=== PATIENT | female | born 1985 | race Caucasian/White ===

== ENCOUNTER 2023-01-06 05:09 | Inpatient (IN) | payer BC, SELFPAY ==
[2023-01-06] VITALS (36 sets, daily range): BP systolic 98–131; BP diastolic 60–81; PULSE 62–98; RESP 16–20; TEMP 36.4–36.9; O2SAT 97–98; BMI 39.4
[2023-01-06 06:22] LABS: Hemoglobin* 11.5 gm/dL (12.0-16.0)
[2023-01-06] MEDS: LACTATED RINGERS 1000 ML 1,000 ML 125 ML IV ×2 (06:31→11:53)
[2023-01-06 06:54] LABS: Hematocrit 33.1 % (33.0-51.0); Hemoglobin* 11.5 gm/dL (12.0-16.0); Mean Corpuscular HGB Conc 35 gm/dL (32-36); Mean Corpuscular Hemoglobin 32 pg (26-34); Mean Corpuscular Volume 92 fL (80-100); Platelet Count* 210 K/uL (140-440); Red Blood Count 3.61 m/uL (4.00-5.20); White Blood Count* 10.54 K/uL (4.50-11.00)
[2023-01-06 06:55] LABS: Basophils Percent Auto 0.4 % (0.0-3.0); Eosinophils Percent Auto 1.6 % (0.0-7.0); Lymphocytes Percent Auto 24.4 % (20-44); Monocytes Percent Auto 7.6 % (0.0-11.0); RDW Coefficient of Variation % 12.9 % (11.5-15.5); Slide Review Reflex No
--- NOTE | 2023-01-06 07:30 | W.PM.LDBA ---
Subjective History of Present Illness Time Seen by Provider: 07:30 Date Seen: 01/06/23 Narrative: Patient is being admitted to Labor and Delivery for scheduled repeat delivery and bilateral salpingectomy. She is a 37 year old at 36w5d gestation. Her full history and physical was dictated by Dr. Winters on 12/27. Please see this for details. She received BMZx2 on 01/01 and 01/02. Dr. Winters was present during our discussion this AM but I reviewed again the indication for her delivery. She saw me for a TOLAC vs CD consult on 12/20 and I had concerns about active segment involvement with her last due to the difficult delivery she described and that hysterotomy was closed in 3 layers (closure for active segment). I reviewed her case with all of my partners as we would have to agree unanimously to offer her a trial of labor after delivery are not given that anyone of us can be licensed vocational nurse when she comes into labor. All of my partners had the same concerns and we did not feel comfortable offering her TOLAC at our institution. Dr. Winters and I did offer her a consult at a tertiary care center if she felt strongly about TOLAC. She declined a second opinion as she did not feel comfortable with the risks of TOLAC anymore, knowing that the case was reviewed with multiple providers. Additionally, she and her spouse were wanting permanent sterilization after this delivery. Originally, the plan was for her to get a vasectomy if she delivered vaginally but now it makes the most sense to proceed with CD and bilateral salpingectomy for her. We had signed federal sterilization consent at our last visit. Active movement. Denies LOF, vaginal bleeding or abnormal vaginal discharge. Minimal contractions. OB - Problem Based A/P Additional Plan (1) Unwanted fertility: Status: Acute (2) Previous delivery affecting : Status: Acute Plan CS Consent The patient was consented for section and blood. She understands that the three main categories of risk include bleeding, infection, and damage to surrounding structures. Regarding infection, she understands that we will be delivering appropriate antibiotics, however that the risk of infection following section still is approximately 5%. She understands that though the risk is very low that there is always a risk of damage to the bladder, uterus, ovaries, fallopian tubes, bowels, ureters, or even the fetus. She understands that most injuries can be addressed at the time of surgery, however, such an injury may require additional surgeries to fix. Lastly, she understands that a section carries a risk of bleeding, and that while this bleeding can be addressed with multiple medical and surgical modalities, that there is the possibility of needing a blood transfusion. She reports she would accept a blood transfusion understanding the risks of a 1/200,000 risk of Hepatitis and 1/2,000,000 risk of HIV as well as the risk of having an allergic reaction to the blood products. She further understands that this reaction is typically mild, however can be severe including respiratory distress and necessitating ICU-level care. Lastly, she understands that a section does increase risks for future pregnancies and deliveries including, but not limited to, the risk of uterine rupture or placenta accreta. We discussed risk/benefit/alternative of permanent sterilization. We discussed that there should be clear understanding this is permanent and irreversible. The mechanism of action is to prevent conception by blocking transport of sperm from the lower genital tract to an ovulated oocytes. My preferred method of sterilization is salpingectomy. Salpingectomy is the removal of bilateral fallopian tubes. There is potential opportunity to decrease the risk of ovarian cancer in patients who already are undergoing pelvic surgery for benign indications. It can decrease the risk of future ovarian cancer by as much as 40-60%. I informed patient that most women who choose sterilization do not regret their decision. CREST study report that 5 year risk of regret is about 7%. Cumulative risk of regret w/in 14 years of procedure is 20% for patient <30 y/o and 6% >30 years of age. Hgb/plt: 11.5/210 O+, negative antibody screen Delivery/Labor/Induction Plan Plan: Section OB Exam Physical Exam Vital signs: Temp Pulse Resp BP Pulse Ox 98.4 F 83 16 131/72 98 01/06/23 05:35 01/06/23 05:33 01/06/23 05:35 01/06/23 05:33 01/06/23 05:38 Narrative: Physical exam: General: No acute distress Psych: Alert and oriented x3, full affect HEENT: Normocephalic, atraumatic Lungs: Unlabored breathing Abdomen: Gravid. Soft, no rebound or guarding Neuro: No focal deficit. Mentating appropriately Pelvic exam: Deferred
[2023-01-06] MEDS: CEFAZOLIN 2 GM INJ IVP (07:40)
[2023-01-06] MEDS: LACTATED RINGERS 1000 ML 1,000 ML 100 ML IV (07:45)
[2023-01-06] MEDS: CEFAZOLIN 1 GM inj IVP (07:45)
--- NOTE | 2023-01-06 08:40 | W.ANESCHARGE ---
Anesthesia Charges Start Date/Time Anesthesia Start Date: 01/06/23 Anesthesia Start Time: 07:24 Stop Date/Time Anesthesia Stop Date: 01/06/23 Anesthesia Stop Time: 09:16
[2023-01-06] MEDS: KETOROLAC 30 MG/ML inj IVP ×3 (08:42→21:22)
--- NOTE | 2023-01-06 09:16 | W.ANESCHARGE ---
Anesthesia Charges Start Date/Time Anesthesia Start Date: 01/06/23 Anesthesia Start Time: 07:24 Stop Date/Time Anesthesia Stop Date: 01/06/23 Anesthesia Stop Time: 09:16
--- NOTE | 2023-01-06 09:16 | W.PM.NB ---
Nerve Block Nerve Block Time Seen by Provider: 09:10 Date Seen: 01/06/23 Type of block requested by surgeon for post-operative analgesia: TAP Side: bilateral Time out performed: Yes Verification of patient name: Yes Verification of date of : Yes Site marking: site marked Name of person performing procedure: Andrea Assistants, if any: Sabine Continuous monitoring Was continuous monitoring of O2 sat, B/P, publication distributor, recorded every 15 minutes?: Yes Procedure Checklist: sterile prep, needles and gloves Ultrasound guided. Images saved: Yes Medications given in 5ml increments after negative aspiration: Marcaine %: 0.25 mL: 30 Needle gauge: 20 and Exparel mL: 10 Patient tolerated procedure well: Yes Additional comments: Needle noted adjacent to nerve Block Charges Block Charge (with Pro Fee): TAP Bilateral Use of Ultrasound Machine for Block: Yes- US Guidance/pain block
--- NOTE | 2023-01-06 09:35 | P.OBPRC_ITS ---
Procedure Time Seen by Provider: 07:00 Date of procedure: 01/06/23 Will [facility] bill your pro fee for this procedure?: Yes Procedure Description: DELIVERY BY SECTION Date of Service: 01/06/2023 Delivery time: 08 Summary: Admitted for scheduled repeat delivery weeks at 36w5d (s/p BMZ benefit), Pfannenstiel, repeat lower uterine transverse section, bilateral salpingectomy, Closed with suture, QBL 843 cc, No complications Findings: Dense and extensive adhesion of rectus fascia to rectus muscle, omentum to anterior rectus sheath and bilateral rectus muscles. Filmy adhesion of the bladder at previous hysterotomy scar. Enlarged uterus with some posterior fibroids, normal bilateral ovaries and fallopian tubes tubes 7, 8, weight 3185 g. Primary Indication: Repeat delivery with concern for active segment involvement Undesired fertility Procedures: Repeat Lower uterine transverse section Bilateral salpingectomy Specimens Removed: Placenta Surgeon: Betsey Hayden MD Timekeeping Supervisor Surgeon: None Anesthesia: Spinal, TAP Report: Prophylactic antibiotic, 3g of Ancef was given before patient was taken to OR. After arrival to the operating room patient was placed in the supine position with left lateral tilt after administration of spinal anesthesia. Laparotomy A pfannenstiel incision was made through the anterior abdominal wall with #10 scalpel approximately 2 cm above the pubic symphysis and along the previous Pfannenstiel incision. The incision was extended sharply with the #10 scalpel through the subcutaneous tissue to the level of fascia. The fascia was entered sharply with a #10 scalpel (Pfannenstiel) in the midline and extended in semi- elliptical fashion with Waters scissor. The underlying muscles were dissected off the overlying fascia by grasping the superior aspect of fascia with two afia clamps and blunt dissection was used along the midline. This was adhesed to the underlying muscles and small amount of omentum was noted to be protruding through. Care was taken to take down the omental adhesion. The fascia was further from rectus muscle with Waters scissor and/or cautery. In similar fashion, the lower aspect of fascia was also grasped with two Afia clamps and both blunt and sharp dissection was used to separate fascia from rectus muscle. The rectus muscles were in the midline sharply with Metzenbaum and electrocautery. The peritoneum was then entered sharply with [place] and Metzenbaum. The peritoneal incision was then extended superiorly and inferiorly under direct visualization with care being taken to avoid bladder and bowel. Filmy adhesion of the bladder to the previous surgical incision, easily taken down with Metzenbaum. The peritoneal incision was enlarged with electrocautery and by lateral traction from the surgeon's and financial services assistant's hand. Twan retractor was inserted into the abdomen. Delivery A bladder flap was developed by grasping with Belgian forcep and enter with Metzenbaun scissor. Then sharp and blunt dissection with Metzenbaum scissor and fingers were performed. A low transverse hysterotomy was made then with #10 scalpel and extended laterally and cephalad with fingers in a low transverse fashion with Manu Vuong technique with care being taken to avoid injury to the fetus. The amniotic cavity (membrane) was then entered with spontaneous rupture of membrane, and the amniotic fluid was noted to be clear, fetus was delivered cephalic. With delivery of the baby, no extension was noted. Placenta was delivered spontaneously with steady traction on cord and manual separation of placenta from uterine wall. Closure Uterine cavity was cleaned after placental delivery with lap sponge x 2. The hysterotomy was closed in one layer with stitches using 0 vicryl with continuous locking stitches. Two [id number] were placed at the center of the hysterotomy for hemostasis. Hemostasis was achieved as needed with electrocautery at all the sites were lysis of adhesions was undertaken. The ovaries/tubes/uterine surface were evaluated. The finds were as stated above. Attention was then turned towards the bilateral salpingectomy. The right fallopian tube was grasped with a [place] clamp, and followed to the fimbriated end of the fallopian tube. The hand-held LigaSure dissecting instrument was used to perform serial pedicles putting at the fimbriated end of the tube. The tube was then removed from the cornea. The pedicles were inspected and bipolar cautery used to obtain hemostasis. The left fallopian tube was then brought to the incision and removed in a similar manner. Again excellent hemostasis noted. Uzair was applied to the hysterotomy and the omental adhesion sites. Twan retractor removed and hemostasis was confirmed again. Fascia was closed with running stitches using 0 PDS. Subcutaneous layer was irrigated. Hemostasis was checked for and found to be adequate. The subcutaneous layer was closed with running 2-0 chromic sutures. The skin was closed with 3-0 vicryl subcuticular sutures. The incision was cleaned, steristrips and silver dressing placed and the procedure was considered terminated at this time. Intraoperative Complications: None QBL: 843 cc Uterotonics: 40 u of pitocin, 1g of TXA Disposition: The patient tolerated the procedure well. She was recovered in Obstetric PACU for close monitoring in stable condition, with a contracted uterus and normal transvaginal bleeding. The infant was sent to mother?s bedside/PACU. The placenta was not sent to pathology.
[2023-01-06] MEDS: ACETAMINOPHEN 500 MG TABLET 1000 MG PO (21:03)
[2023-01-07] VITALS (10 sets, daily range): BP systolic 116–125; BP diastolic 62–76; PULSE 67–94; RESP 16–18; TEMP 36.4–36.8; O2SAT 98–99
[2023-01-07] MEDS: KETOROLAC 30 MG/ML inj IVP ×3 (03:26→15:40)
[2023-01-07 06:39] LABS: Hemoglobin* 11.3 gm/dL (12.0-16.0)
--- NOTE | 2023-01-07 08:59 | P.OBPN_ITS ---
OB - PN:Subj Subjective Date Seen: 01/07/23 Patient comments OB post-: no complaints, pain well controlled, tolerating diet and flatus present [place] status: and doing well [place] feeding status: exclusively Narrative: Day 1:? Delivery at 36 and 5/7 weeks.? ?? Complications:? none? The patient feels well.? The pain is well controlled with current medications.? She has no new complaints.? Urinary output is adequate and she is voiding without difficulty.? Has a good appetite, is tolerating a general diet, is passing flatus, and has not had a bowel movement.? Has scant amount of rubra lochia.? She is ambulating well.? OB - PN: Obj Exam Physical Exam: Vital signs: Temp Pulse Resp BP Pulse Ox O2 Del Method 97.5 F L 67 18 125/62 98 Room Air 01/07/23 03:16 01/07/23 03:16 01/07/23 06:29 01/07/23 03:16 01/06/23 20:30 01/06/23 20:30 Narrative: GENERAL APPEARANCE:? normal affect, alert, no distress? MOOD:? appropriate? CHEST:? clear to auscultation and percussion? HEART:? regular rate and rhythm? ABDOMEN:? soft, non-tender. the uterine fundus is U/2 and is appropriate for the stage of recovery.?Incision dressing clean, dry and intact. EXTREMITIES:? normal and no edema? ? Urinary Catheter Management: alex: Cath placed during this visit: yes, but has since been removed by the nurse Reason for continuing: surgical procedure Insertion date: 01/06/23 Insertion time: 07:33 Removal date: 01/07/23 Removal time: 00:00 OB - PN: Obj Data Labs Labs: Laboratory Results - last 24 hr 01/07/23 06:02 Hgb 11.3 L OB - PN: A/P Delivery Assessment and Plan (1) Lactating mother: Status: Acute (2) care following delivery: Status: Acute Plan day: 1 Plan: routine care Comments: 35 year old on postop day 1.? 1. Routine cares.? 2. Anticipate discharge tomorrow or the day after per patient preference.
[2023-01-07] MEDS: ENOXAPARIN 40 MG/0.4 ML INJ SUBCUT (09:57)
[2023-01-07] MEDS: DOCUSATE SODIUM 100 MG CAPSULE PO (09:58)
[2023-01-07] MEDS: ACETAMINOPHEN 500 MG TABLET 1000 MG PO (13:15)
[2023-01-07] MEDS: MAG HYDROX/ALUMINUM HYD/SIMETH 30 ML ORAL.SUSP PO (16:38)
[2023-01-08] MEDS: IBUPROFEN 600 MG TABLET PO ×2 (00:37→10:47)
[2023-01-08 00:49] VITALS: BP 120/72; PULSE 83; RESP 16; TEMP 37.1; O2SAT 98
[2023-01-08] MEDS: DOCUSATE SODIUM 100 MG CAPSULE PO (07:36)
[2023-01-08] MEDS: ACETAMINOPHEN 500 MG TABLET 1000 MG PO (07:36)
--- NOTE | 2023-01-08 07:37 | PM.OBDSVD1 ---
DS: Providers Provider Date Seen: 01/08/23 Date of admission: 01/06/23 05:09 Primary care physician: Alie Winters MD Admitting Clinician: Betsey Hayden MD Attending Physician on discharge: TONE Khan CNM Date of Discharge: 01/08/23 DS: Diagnosis Discharge Diagnosis (1) care following delivery: Status: Acute (2) Lactating mother: Status: Acute Exam Narrative: Exam Narrative: GENERAL APPEARANCE:? normal affect, alert, no distress MOOD:? appropriate CHEST:? clear to auscultation HEART:? regular rate and rhythm ABDOMEN:? soft, non-tender the uterine fundus is 1 cm below Umbilicus, Midline and is appropriate for the stage of recovery. PERINEUM:? intact. EXTREMITIES:? normal and trace edema Incision: silver dressing intact, no discharge seen. Const: Vital Signs, click to edit/add: Vital Signs - 24 hr 01/07/23 18:19 01/08/23 00:49 Temperature 98.2 F 98.7 F Pulse Rate [Pulse Oximeter] 75 83 Respiratory Rate 18 16 Blood Pressure [Ri ght Arm] 119/76 120/72 Pulse Oximetry 98 98 Oxygen Delivery Me thod Room Air Room Air Documenting provider has reviewed patient's vital signs: yes OB - DS: Summary Hospital Course Hospital Course: Laya is a 37 y.o. who was admitted to L & D for repeat with tubal ligation. ?She had an uncomplicated . ? The patient feels well. ?The pain is well controlled with current medications. ?She has no new complaints. ?She is breast feeding and reports things are going well.? the patient has done well.? Vitals have been stable.? She has remained afebrile.? Has a good appetite, is tolerating a general diet. ?She is voiding without difficulty.? She is passing gas and has not had a bowel movement.? She is ambulating and denies any dizziness.? Has Small amount of rubra lochia. ?She did have a bilateral tubal ligation during her . Peripartum Data Infant delivery method: Repeat Section Procedures: Procedures Operation Date: 01/06/23 07:15 Actual Procedure Side Surgeon p Repeat Section, Tubal Ligation Betsey Hayden MD complications: none [place] Gender: Male Infant Discharge Plan: Home Status at Discharge Functional status at discharge: independent ambulation Overall status at discharge: patient is progressing back to baseline Time Spent with Patient Time attestation: Total time spent providing and/or coordinating discharge services: Time spent: Less than 30 minutes Discharge Plan Discharge Disposition: Home, Self-Care Date of Admission: 01/06/23 05:09 Attending Provider on Discharge: Pina Mendosa Primary Care Provider: Alie Winters Condition: Stable Anticipated Discharge Date/Time: 01/08/23 12:00 Discharge Medications: New docusate sodium 100 mg Capsule 100 mg PO BID PRNQty: 100 0RF ibuprofen 600 mg Tablet 600 mg PO Q6H PRN (Reason: Pain) Qty: 60 0RF oxycodone 5 mg Tablet 5 - 10 mg PO Q4H PRN (Reason: Pain) Qty: 5 0RF Continued sertraline 100 mg tablet 100 mg PO QDAY PNV #[id number] 30 mg iron-10 mg iron-1 mg capsule PO DAILY Zyrtec 10 mg capsule 10 mg PO QDAY PRN Discharge Orders: Discharge Order (Routine); Ordered 01/08/23 Ordered By: Romi Rosales Patient Education: OB Over the Counter Medication Information, OB /Breast Feeding Additional Instructions: Discharge instructions were reviewed with the patient including signs and symptoms of infection and home going medications Lifting Restrictions: 20 pounds for 6 weeks No not submerge incision under water X 2 weeks? Nothing vaginally for 6 weeks: no tampons or intercourse Do not drive while taking narcotic pain medication(s) Off Work or School for 6 weeks Optional 2-week visit: incision check, discuss feeding concerns, review control options and screen for anxiety/depression. 6-week visit for an annual exam. consultation services are available to all mothers and babies for the first year after delivery.? To make an appointment, please call [phone]. Activity Level: Activity as Tolerated Discharge Diet: Regular Follow Up Appointments: [facility] [Provider Group] Alie Winters MD [Primary Care Provider] - Forms: [employer] Info Instructions
[2023-01-08 07:38] VITALS: BP 121/77; PULSE 89; RESP 18; TEMP 36.6; O2SAT 96
== END 2023-01-08 12:35 | disposition home or self-care (01) | DRG 540 ==
PROVIDERS: Admitting Provider Obstetrics & Gynecology; PCP Family Medicine; Visit Provider Obstetrics & Gynecology
PROC: 10D00Z1 Extraction of Products of Conception, Low, Open Approach (ICD-10-PCS; CPT 59514; principal; 2023-01-06 07:15)
DX: O34.211 Maternal care for low transverse scar from previous cesarean delivery (principal); Z30.2 Encounter for sterilization; Z3A.36 36 weeks gestation of pregnancy; O60.14X0 Preterm labor third trimester with preterm delivery third trimester, not applicable or unspecified; O99.892 Other specified diseases and conditions complicating childbirth; N73.6 Female pelvic peritoneal adhesions (postinfective); O34.13 Maternal care for benign tumor of corpus uteri, third trimester; D25.9 Leiomyoma of uterus, unspecified; Z37.0 Single live birth; G89.18 Other acute postprocedural pain
CPT/HCPCS: 01961; 36415; 64488; 76942; 85018; 85025; 86850; 86900; 86901; 88302; A9270; C9290; J0665; J0690; J1650; J1885; J2274; J2371; J2405; J7120